=== PATIENT | male | born 1945 | race Caucasian/White ===

== ENCOUNTER 2020-09-26 06:14 | Day surgery (SDC) | payer OTHER ==
[~2020-09-26] VITALS: Ht 175.3 cm; Wt 99.9 kg
[2020-09-26] MEDS ORDERED: IRBE75 PO (06:48)
[2020-09-26] MEDS ORDERED: OMEP20ER PO (06:48)
[2020-09-26] MEDS ORDERED: ASPIR 8181 M1 PO (06:48)
[2020-09-26] MEDS ORDERED: MAGCHL64ER (06:49)
[2020-09-26] MEDS ORDERED: C COMPLEX1000 M1 PO (06:49)
--- NOTE | 2020-09-26 07:27 | NUR ---
09/26/20 0727 Rhonda Gill DROP IN AT [id number], PLEDGET IN AT 0633
== END 2020-09-26 08:31 | disposition home or self-care (01) ==
LOC: ORSCSDS 06:14
PROVIDERS: Ophthalmology
PROC: 08RK3JZ Replacement of Left Lens with Synthetic Substitute, Percutaneous Approach (ICD-10-PCS; principal; 2020-09-26 07:30)
DX: H25.12 Age-related nuclear cataract, left eye (principal); H21.81 Floppy iris syndrome; I10 Essential (primary) hypertension; K21.9 Gastro-esophageal reflux disease without esophagitis; Z79.82 Long term (current) use of aspirin; Z79.899 Other long term (current) drug therapy
CPT/HCPCS: J2001; J2250; J3010; J3301; J7040; J7120; V2632

== ENCOUNTER 2022-02-24 01:12 | Day surgery (SDC) | payer OTHER ==
[~2022-02-24 01:12] MED LIST: ASPIR 8181 M1 PO; C COMPLEX1000 M1 PO; IRBE75 PO; MAGCHL64ER; OMEP20ER PO
== END 2022-02-24 22:41 | disposition home or self-care (01) ==
LOC: WOUND 01:12
DX: L40.9 Psoriasis, unspecified (principal); Z87.891 Personal history of nicotine dependence
CPT/HCPCS: A9270; G0463

== ENCOUNTER 2024-07-11 17:02 | Emergency (ER) | payer OTHER ==
[~2024-07-11] VITALS: Ht 175.3 cm; Wt 95.7 kg
[2024-07-11 17:28] VITALS: BP 189/112
[2024-07-11] MEDS ORDERED: Diphth,Pertuss(Acell),Tet Vac 0.5 ML VIAL IM ONE (17:30)
== END 2024-07-11 19:45 | disposition home or self-care (01) ==
LOC: ER 17:02
DX: S01.81XA Laceration without foreign body of other part of head, initial encounter (principal); W01.0XXA Fall on same level from slipping, tripping and stumbling without subsequent striking against object, initial encounter; Z79.82 Long term (current) use of aspirin; Z79.899 Other long term (current) drug therapy; Z87.891 Personal history of nicotine dependence; Z23 Encounter for immunization
CPT/HCPCS: 12011; 70450; 71101; 72125; 90471; 90715; 99283-25